=== PATIENT | female | born 1955 | race Hispanic/Latino ===

== ENCOUNTER 2020-04-22 07:20 | Observation (INO) | payer BC, OTHER ==
[2020-04-17 15:59] LABS: BASOPHILS # (AUTO) 0.1 (0.0-0.1); BASOPHILS % 0.5 % (0.0-1.0); EOSINOPHILS # (AUTO) 0.3 (0.0-0.4); EOSINOPHILS % 3.1 % (0.0-6.0); HEMATOCRIT 37.8 % (34.2-44.1); HEMOGLOBIN 12.1 g/dL (12.0-16.0); LYMPHOCYTES # (AUTO) 4.1 (1.0-3.2); LYMPHOCYTES % 40.6 % (18.0-39.1); MEAN CORPUSCULAR HEMOGLOBIN 29.8 pg (28-32); MEAN CORPUSCULAR VOLUME 93.1 fL (81-99); MONOCYTES % 10.2 % (4.4-11.3); NEUTROPHILS # (AUTO) 4.6 (2.1-6.9); NEUTROPHILS % 45.2 % (38.7-80.0); PLATELET COUNT 228 x10e3/uL (140-360); RED BLOOD COUNT 4.06 x10e6/uL (3.6-5.1); RED CELL DISTRIBUTION WIDTH 14.6 % (11.7-14.4)
[~2020-04-22] VITALS: Ht 157.5 cm; Wt 71.2 kg
[~2020-04-22 07:20] MED LIST: DIOVAN160 MG PO; ESTRADIOL PO; METOPROLOL TART25 MG PO; NIFEDIPINE ER30 M1 PO; ROPIVACAINE 246.25 MG, EPINEPHRINE HCL 1:1000 1ML 0.5 MG, CLONIDINE HCL 0.08 MG, KETORO... INJ ONE; SYNTHROID PO
[2020-04-22] MEDS ORDERED: CELECOXIB 200 MG CAP ONE (08:21)
[2020-04-22] MEDS ORDERED: DEXAMETHASONE SOD PHOS 10 MG/1 ML VIAL ONE (08:22)
[2020-04-22] MEDS ORDERED: CEFAZOLIN SOD 1 GM/NS 50ML 100 ML IV ONE (08:22)
[2020-04-22] MEDS ORDERED: GABAPENTIN 300 MG CAP ONE (08:22)
[2020-04-22] MEDS ORDERED: VANCOMYCIN HCL 1,000 MG ONE (09:05)
[2020-04-22] MEDS ORDERED: TRANEXAMIC ACID 1,000 MG/10 ML ML ONE (09:06)
[2020-04-22] MEDS ORDERED: SODIUM CHLORIDE 0.9% 500ML 500 ML ONE (09:06)
[2020-04-22] MEDS ORDERED: KETOROLAC TROMETHAMINE 30 MG/ML VIAL IV PRN (11:15)
[2020-04-22] MEDS ORDERED: DIPHENHYDRAMINE HCL INJ 50 MG/ML VIAL IV PRN (11:15)
[2020-04-22] MEDS ORDERED: ZOLPIDEM TARTRATE 5 MG TAB PO PRN (11:15)
[2020-04-22] MEDS ORDERED: ACETAMINOPHEN 650 MG SUPP PR PRN (11:15)
[2020-04-22] MEDS ORDERED: HYDROCODONE/APAP 5MG-325MG TAB PO PRN (11:15)
[2020-04-22] MEDS ORDERED: ONDANSETRON HCL INJ 2MG/ML 2ML 2 MG/ML VIAL IV PRN (11:15)
[2020-04-22] MEDS ORDERED: DOCUSATE SODIUM 100 MG CAP PO PRN (11:15)
[2020-04-22] MEDS ORDERED: ONDANSETRON HCL INJ 2MG/ML 2ML 2 MG/ML VIAL ONE (12:46)
[2020-04-22] MEDS ORDERED: LIDOCAINE HCL 2% LOCAL INJ 5 ML SDV VIAL INJ ONE (12:46)
[2020-04-22] MEDS ORDERED: PROPOFOL IV EMULSION 10 MG/ML 20 ML VIAL ONE (12:46)
[2020-04-22] MEDS ORDERED: KETOROLAC TROMETHAMINE 30 MG/ML VIAL ONE (12:46)
[2020-04-22] MEDS ORDERED: SEVOFLURANE INHAL SOLN 250 ML PEN BTL ONE (12:46)
[2020-04-22] MEDS ORDERED: LIDOCAINE 2%/ EPINEPHRINE 20ML MDV ONE (13:26)
[2020-04-22] MEDS ORDERED: ROPIVACAINE 0.5% 5 MG/ML 30 ML SDV ONE (13:26)
[2020-04-22 15:28] VITALS: BP 142/63
[2020-04-22 16:14] VITALS: BP 142/63
[2020-04-22] MEDS: ASPIRIN 325 MG TAB PO SCH (18:00)
[2020-04-22] MEDS: CELECOXIB 200 MG CAP PO SCH (18:01)
[2020-04-22] MEDS: SODIUM CHLORIDE 0.9% 1000ML 1,000 ML IV SCH (18:05)
[2020-04-22] MEDS: CEFAZOLIN SOD 1 GM/NS 50ML 50 ML IV SCH (18:06)
[2020-04-22 20:00] VITALS: BP 120/55
[2020-04-22 20:03] VITALS: BP 142/63
[2020-04-22 20:30] VITALS: BP 120/55
[2020-04-22 20:40] VITALS: BP 124/76
[2020-04-23] VITALS: BP 108/45
[2020-04-23] MEDS: SODIUM CHLORIDE 0.9% 1000ML 1,000 ML IV SCH (02:00)
[2020-04-23] MEDS: CEFAZOLIN SOD 1 GM/NS 50ML 50 ML IV SCH ×2 (02:50→09:47)
[2020-04-23 04:00] VITALS: BP 106/45
[2020-04-23] MEDS: HYDROCODONE/APAP 7.5MG-325MG 1 EA TAB PO PRN ×2 (04:35→11:13)
[2020-04-23 05:14] LABS: HEMATOCRIT 31.2 % (34.2-44.1)
[2020-04-23 08:27] VITALS: BP 113/60
[2020-04-23] MEDS: CELECOXIB 200 MG CAP PO SCH (08:33)
[2020-04-23] MEDS: ASPIRIN 325 MG TAB PO SCH (08:33)
[2020-04-23 08:48] VITALS: BP 113/60
[2020-04-23] MEDS ORDERED: METOPROLOL TARTRATE 25 MG TAB PO SCH (09:00)
[2020-04-23] MEDS ORDERED: ONDANSETRON HCL 4 MG ORAL DISINTEGRATING TAB PO PRN (09:30)
[2020-04-23] MEDS ORDERED: ACETAMINOPHEN 1000 MG/100 ML IV PRN (11:15)
== END 2020-04-23 12:35 | disposition home or self-care (01) ==
LOC: OR 07:20 → PACU V 11:10 → MED/SURG 15:29
PROVIDERS: ADMIT Specialist; ATTEND Specialist
DX: M17.0 Bilateral primary osteoarthritis of knee (principal); I10 Essential (primary) hypertension; E05.90 Thyrotoxicosis, unspecified without thyrotoxic crisis or storm; Z96.651 Presence of right artificial knee joint; D64.9 Anemia, unspecified; Z20.822 Contact with and (suspected) exposure to COVID-19; Z01.818 Encounter for other preprocedural examination
CPT/HCPCS: 36415; 85014; 85018; 85025; 86850; 86900; 86920; 93005; C1713; C1776; G0378; J0171; J0690; J1100; J1885; J2001; J2405; J2795; J3370; J7030; J7040; U0002

== ENCOUNTER → 2020-06-17 | Outpatient (CLI) | payer OTHER ==
[~2020-06-17] MED LIST changes: +LIDOCAINE VISC 2% SOLN 15 ML UDC ONE; -ROPIVACAINE 246.25 MG, EPINEPHRINE HCL 1:1000 1ML 0.5 MG, CLONIDINE HCL 0.08 MG, KETORO... INJ ONE
== END ==
LOC: WCC 14:46
PROVIDERS: ATTEND Family Medicine Adult Medicine
DX: L89.893 Pressure ulcer of other site, stage 3 (principal); Y84.8 Other medical procedures as the cause of abnormal reaction of the patient, or of later complication, without mention of misadventure at the time of the procedure; R60.0 Localized edema; I87.2 Venous insufficiency (chronic) (peripheral); I10 Essential (primary) hypertension; E03.9 Hypothyroidism, unspecified; X58.XXXA Exposure to other specified factors, initial encounter

== ENCOUNTER → 2020-06-26 | Outpatient (CLI) | payer OTHER ==
[~2020-06-26] MED LIST changes: -LIDOCAINE VISC 2% SOLN 15 ML UDC ONE; +LIDOCAINE/PRILOCAINE 2.5-2.5% KIT ONE; +MINERAL OIL/PETROLAT/GLYCERI 6OZ BTL ONE
== END ==
LOC: WCC 15:27
PROVIDERS: ATTEND Family Medicine Adult Medicine
DX: L89.893 Pressure ulcer of other site, stage 3 (principal); Y84.8 Other medical procedures as the cause of abnormal reaction of the patient, or of later complication, without mention of misadventure at the time of the procedure; R60.0 Localized edema; I87.2 Venous insufficiency (chronic) (peripheral); I10 Essential (primary) hypertension; E03.9 Hypothyroidism, unspecified; X58.XXXA Exposure to other specified factors, initial encounter

== ENCOUNTER → 2020-06-30 | Outpatient (CLI) | payer OTHER ==
[~2020-06-30] MED LIST changes: -LIDOCAINE/PRILOCAINE 2.5-2.5% KIT ONE; -MINERAL OIL/PETROLAT/GLYCERI 6OZ BTL ONE
== END ==
LOC: WCC 15:44
PROVIDERS: ATTEND Family Medicine Adult Medicine
DX: L89.893 Pressure ulcer of other site, stage 3 (principal); Y84.8 Other medical procedures as the cause of abnormal reaction of the patient, or of later complication, without mention of misadventure at the time of the procedure; I87.2 Venous insufficiency (chronic) (peripheral); R60.0 Localized edema; I10 Essential (primary) hypertension; E03.9 Hypothyroidism, unspecified; X58.XXXA Exposure to other specified factors, initial encounter

== ENCOUNTER → 2020-07-03 | Outpatient (CLI) | payer OTHER | LOC: WCC 15:50 | PROVIDERS: ATTEND Family Medicine Adult Medicine | DX: L89.893 Pressure ulcer of other site, stage 3 (principal); Y84.8 Other medical procedures as the cause of abnormal reaction of the patient, or of later complication, without mention of misadventure at the time of the procedure; I87.2 Venous insufficiency (chronic) (peripheral); R60.0 Localized edema; I10 Essential (primary) hypertension; E03.9 Hypothyroidism, unspecified; X58.XXXA Exposure to other specified factors, initial encounter ==

== ENCOUNTER → 2020-07-08 | Outpatient (CLI) | payer OTHER | LOC: WCC 15:05 | PROVIDERS: ATTEND Family Medicine Adult Medicine | DX: L89.893 Pressure ulcer of other site, stage 3 (principal); Y84.8 Other medical procedures as the cause of abnormal reaction of the patient, or of later complication, without mention of misadventure at the time of the procedure; I87.2 Venous insufficiency (chronic) (peripheral); R60.0 Localized edema; I10 Essential (primary) hypertension; E03.9 Hypothyroidism, unspecified; X58.XXXA Exposure to other specified factors, initial encounter ==

== ENCOUNTER → 2020-07-15 | Outpatient (CLI) | payer OTHER | LOC: WCC 15:20 | PROVIDERS: ATTEND Family Medicine Adult Medicine | DX: L89.893 Pressure ulcer of other site, stage 3 (principal); Y84.8 Other medical procedures as the cause of abnormal reaction of the patient, or of later complication, without mention of misadventure at the time of the procedure; R60.0 Localized edema; I87.2 Venous insufficiency (chronic) (peripheral); I10 Essential (primary) hypertension; E03.9 Hypothyroidism, unspecified; X58.XXXA Exposure to other specified factors, initial encounter ==

== ENCOUNTER → 2020-07-18 | Outpatient (CLI) | payer OTHER | LOC: WCC 15:20 | PROVIDERS: ATTEND Family Medicine Adult Medicine | DX: L89.893 Pressure ulcer of other site, stage 3 (principal); R60.0 Localized edema; X58.XXXA Exposure to other specified factors, initial encounter; I10 Essential (primary) hypertension; E03.9 Hypothyroidism, unspecified ==

== ENCOUNTER → 2020-08-05 | Outpatient (CLI) | payer OTHER ==
[~2020-08-05] MED LIST changes: +LIDOCAINE VISC 2% SOLN 15 ML UDC ONE
== END ==
LOC: WCC 15:26
PROVIDERS: ATTEND Family Medicine Adult Medicine
DX: L89.893 Pressure ulcer of other site, stage 3 (principal); Y84.8 Other medical procedures as the cause of abnormal reaction of the patient, or of later complication, without mention of misadventure at the time of the procedure; I87.2 Venous insufficiency (chronic) (peripheral); R60.0 Localized edema; I10 Essential (primary) hypertension; E03.9 Hypothyroidism, unspecified; X58.XXXA Exposure to other specified factors, initial encounter

== ENCOUNTER → 2020-08-08 | Outpatient (CLI) | payer OTHER ==
[~2020-08-08] MED LIST changes: -LIDOCAINE VISC 2% SOLN 15 ML UDC ONE
== END ==
LOC: WCC 08:18
PROVIDERS: ATTEND Family Medicine Adult Medicine
DX: I87.2 Venous insufficiency (chronic) (peripheral) (principal); Y84.8 Other medical procedures as the cause of abnormal reaction of the patient, or of later complication, without mention of misadventure at the time of the procedure; R60.0 Localized edema; I10 Essential (primary) hypertension; E03.9 Hypothyroidism, unspecified; X58.XXXA Exposure to other specified factors, initial encounter

== ENCOUNTER → 2022-08-17 | Outpatient (CLI) | payer MEDICARE | LOC: NM 08:08 | PROVIDERS: ATTEND Internal Medicine Gastroenterology | DX: R10.13 Epigastric pain (principal); R11.0 Nausea; R68.81 Early satiety; R14.0 Abdominal distension (gaseous); Z68.26 Body mass index [BMI] 26.0-26.9, adult | CPT/HCPCS: 78264; A9541 ==